=== PATIENT | male | born 1940 | race Caucasian/White ===

== ENCOUNTER 2023-11-07 06:52 | Day surgery (SDC) | payer MEDICARE, OTHER ==
[~2023-11-07 06:52] MED LIST: Acetaminophen 325 MG Tab PO PRN; Acetaminophen/Codeine 300-30 MG Tab PO PRN; Cataract Ophth Solution EYELF ONE; Moxifloxacin 0.5% Ophth Soln 3 ML Bottle EYELF ONE; Ondansetron 4 MG/2 ML SDV IVPUSH PRN; Phenylephrine 10% Ophth Soln 5 ML Bot EYELF PRN; Povidone-Iodine 5% Sterile Ophth Soln 30 ML Bottle EYELF ONE; Proparacaine 0.5% Ophth Soln 15 ML Bottle EYELF ONE; Sodium Chloride 0.9% 10 ML Syringe FLUSH PRN; Timolol Maleate 0.5% Ophth Soln 5 ML Bottle EYELF ONE; Tropicamide 1% Ophth Soln 15 ML Bottle EYELF ONE
[2023-11-07] MEDS ORDERED: Proparacaine 0.5% Ophth Soln 15 ML Bottle EYELF ONE (08:19)
[2023-11-07] MEDS ORDERED: Povidone-Iodine 5% Sterile Ophth Soln 30 ML Bottle EYELF ONE (08:20)
[2023-11-07] MEDS ORDERED: Apraclonidine 0.5% Ophth Soln 5 ML Bot EYELF ONE (08:20)
[2023-11-07] MEDS ORDERED: Diclofenac Sodium 0.1% Ophth Soln 5 ML Bottle EYELF ONE (08:23)
[2023-11-07] MEDS ORDERED: Tobramycin 0.3% Ophth Oint 3.5 GM Tube EYELF ONE (08:26)
[2023-11-07] MEDS ORDERED: Chondroitin Sulfate/Hyaluronate Sodium Ophth Inj 0.75 ML Syringe EYELF ONE (08:27)
[2023-11-07] MEDS ORDERED: Balanced Salt Solution Ophth Irrig 500 ML Bottle IOCULAR ONE (08:27)
[2023-11-07] MEDS ORDERED: Vancomycin 500 MG SDV EYELF ONE (08:27)
[2023-11-07] MEDS ORDERED: Lidocaine 1% 30 ML SDV INFILT ONE (08:27)
== END 2023-11-07 09:30 | disposition home or self-care (01) ==
LOC: DL.SDS 06:52
PROVIDERS: ATTEND Ophthalmology
DX: H25.812 Combined forms of age-related cataract, left eye (principal); G47.33 Obstructive sleep apnea (adult) (pediatric); N40.0 Benign prostatic hyperplasia without lower urinary tract symptoms; Z79.899 Other long term (current) drug therapy; Z91.048 Other nonmedicinal substance allergy status
CPT/HCPCS: 00142; 99100; A9270-GY; J3370; J3490; V2788-GY